=== PATIENT | female | born 1995 | race Caucasian/White ===

== ENCOUNTER 2023-03-09 12:13 | Emergency (ER) | payer SELFPAY ==
[~2023-03-09] VITALS: Ht 160 cm; Wt 57.2 kg
[2023-03-09 12:15] VITALS: BP_SYST 118
[2023-03-09] MEDS ORDERED: LIDOCAINE PF 1% 30ML(POUR BTL) INJ ONE (13:30)
[2023-03-09] MEDS ORDERED: SULFAMETHOXAZOLE/TRIMETHOPR DS 1 TABLET PO ONE (13:30)
[2023-03-09] MEDS ORDERED: OXYCODONE/ACETAMINOPHEN 5-325 TABLET PO ONE (13:30)
[2023-03-09] MEDS ORDERED: cephALEXin 500 MG CAPSULE PO ONE (14:15)
[2023-03-09] MEDS ORDERED: SULF1TAB48 PO (14:27)
[2023-03-09] MEDS ORDERED: CEPH-548 PO (14:27)
[2023-03-09] MEDS ORDERED: IBUP-1969 PO (14:27)
[2023-03-09 14:42] VITALS: BP_SYST 118
== END 2023-03-09 14:42 | disposition home or self-care (01) ==
LOC: SED 12:13
DX: L02.31 Cutaneous abscess of buttock (principal); Z88.0 Allergy status to penicillin; Z88.1 Allergy status to other antibiotic agents; Z79.899 Other long term (current) drug therapy
CPT/HCPCS: 99284; 10060; J2001